=== PATIENT | male | born 1975 | race Caucasian/White ===

== ENCOUNTER 2016-04-06 22:30 | Emergency (ER) | payer OTHER ==
[~2016-04-06 22:30] MED LIST: AMOXICILLIN 50500 MG PO; CLINDAMYCIN HC150 MG PO; DAYPRO600 MG PO; DAZIDOX10 MG PO; DILAUDID 4MG TAB4 MG PO; FLEXERIL 1010 MG/TAB PO; LORTAB 5/500 501 TAB PO; LORTAB 7.5/5001 TAB PO; MS CONTIN30 MG PO; NO HOME MEDICATIONS; NORCO 325 MG-51 TAB PO; NORCO 325 MG-7.1 TAB PO; PERCOCET 325 MG1 TA2 PO; PERCOCET 325 MG1 TAB PO; PERCOCET 5/321 UDTAB PO; PERCOCET 650 MG1 TAB PO; PERCR 7.5 PO; SILVADENE 400G400 GM TP; TUSS PO; ULTRAM 50MG TAB50 MG PO; UNABLE; VENTOLIN0.09 MG IH; XANAX 0.5MG0.5 MG PO; XANAX0.5 MG PO; ZOFRAN ODT8 MG PO; blood pressure med
[2016-04-06 22:40] VITALS: TEMP 98.9
[2016-04-06 23:05] LABS: BASO # 0.1 (0.0-0.2); BASO % 0.6 % (0.0-2.0); EOS # 0.1 (0.0-0.7); GRAN # 4.1 (1.4-6.5); GRAN % 50.7 % (42.2-75.2); HEMATOCRIT 45.4 % (42.0-52.0); HEMOGLOBIN 15.3 g/dl (13.5-18.0); LYMPH # 3.3 (1.2-3.4); LYMPH % 41.3 % (20.0-51.0); MEAN CELL VOLUME 80 fl (80.0-100.0); MEAN CORPUSCULAR HEMOGLOBIN 27 pg (27.0-31.0); MEAN CORPUSCULAR HGB CONC 34 g/dl (33.0-37.0); MEAN PLATELET VOLUME 10.2 fl (7.4-10.4); MONO # 0.5 (0.1-0.6); MONO % 6.2 % (1.7-9.3); PLATELET COUNT 254 K/mm3 (130-400); RED BLOOD COUNT 5.71 M/mm3 (4.20-5.60); REDCELL DISTRIBUTION WIDTH-CV 12.7 % (11.5-14.5)
[2016-04-06 23:11] LABS: PROTHROMBIN TIME 10.8 SECONDS (9.7-12.8)
[2016-04-06 23:14] LABS: PARTIAL THROMBOPLASTIN TIME 31.6 SECONDS (26.0-37.0)
[2016-04-06 23:18] LABS: ADJUSTED CALCIUM 9.4 mg/dL (8.4-10.2); ALANINE AMINOTRANSFERASE 28 U/L (21-72); ALBUMIN 4.6 gm/dL (3.5-5.0); ALKALINE PHOSPHATASE 57 U/L (50-136); ANION GAP 13 mmol/L (7-16); BILIRUBIN,TOTAL 0.7 mg/dL (0.0-1.0); BLOOD UREA NITROGEN 19 mg/dL (9-20); CALCIUM 9.9 mg/dL (8.4-10.2); CARBON DIOXIDE 28 mmol/L (22-30); CHLORIDE 100 mmol/L (98-107); CREATININE, serum 1.07 mg/dL (0.66-1.25); GLUCOSE 87 mg/dL (74-106); POTASSIUM 4.1 mmol/L (3.4-5.0); SODIUM 141 mmol/L (137-145); TOTAL PROTEIN 7.9 gm/dL (6.4-8.2)
[2016-04-06 23:26] LABS: C-REACTIVE PROTEIN < 0.5 mg/dL (0.0-0.9)
[2016-04-06 23:27] LABS: TROPONIN-I < 0.012 ng/mL (0.000-0.034)
[2016-04-07] MEDS ORDERED: NORCO 325 MG-51 TAB PO (00:09)
[2016-04-07 01:18] VITALS: BP 127/84; PULSE 84
== END 2016-04-07 01:20 | disposition home or self-care (01) ==
LOC: COL.ER 22:30
PROVIDERS: Family Medicine
DX: R07.9 Chest pain, unspecified (principal)
CPT/HCPCS: J1170; J1885

== ENCOUNTER 2016-04-14 19:06 | Emergency (ER) | payer OTHER ==
[~2016-04-14] VITALS: Ht 190.5 cm; Wt 97.7 kg
[2016-04-14 19:10] VITALS: TEMP 97.4
[2016-04-14 19:43] LABS: BASO % 0.7 % (0.0-2.0); EOS # 0.1 (0.0-0.7); EOS % 1.6 % (0-4.0); GRAN % 49.4 % (42.2-75.2); HEMATOCRIT 44.1 % (42.0-52.0); HEMOGLOBIN 15.2 g/dl (13.5-18.0); LYMPH # 2.5 (1.2-3.4); LYMPH % 41.5 % (20.0-51.0); MEAN CELL VOLUME 78 fl (80.0-100.0); MEAN CORPUSCULAR HEMOGLOBIN 27 pg (27.0-31.0); MEAN CORPUSCULAR HGB CONC 35 g/dl (33.0-37.0); MEAN PLATELET VOLUME 9.6 fl (7.4-10.4); MONO # 0.4 (0.1-0.6); MONO % 6.6 % (1.7-9.3); PLATELET COUNT 265 K/mm3 (130-400); RED BLOOD COUNT 5.66 M/mm3 (4.20-5.60); REDCELL DISTRIBUTION WIDTH-CV 12.6 % (11.5-14.5); WHITE BLOOD COUNT 6.1 K/mm3 (4.8-10.8)
[2016-04-14 19:58] LABS: ADJUSTED CALCIUM 9.4 mg/dL (8.4-10.2); ALANINE AMINOTRANSFERASE 26 U/L (21-72); ALBUMIN 4.5 gm/dL (3.5-5.0); ALKALINE PHOSPHATASE 63 U/L (50-136); ANION GAP 13 mmol/L (7-16); BILIRUBIN,TOTAL 0.6 mg/dL (0.0-1.0); BLOOD UREA NITROGEN 24 mg/dL (9-20); CALCIUM 9.8 mg/dL (8.4-10.2); CARBON DIOXIDE 25 mmol/L (22-30); CHLORIDE 103 mmol/L (98-107); CREATININE, serum 1.09 mg/dL (0.66-1.25); GLUCOSE 89 mg/dL (74-106); SODIUM 140 mmol/L (137-145); TOTAL PROTEIN 7.7 gm/dL (6.4-8.2)
[2016-04-14 20:10] LABS: TROPONIN-I < 0.012 ng/mL (0.000-0.034)
[2016-04-14 23:25] VITALS: BP 133/72; PULSE 68
== END 2016-04-14 23:27 | disposition home or self-care (01) ==
LOC: COL.ER 19:06
PROVIDERS: Nurse Practitioner
DX: R07.9 Chest pain, unspecified (principal); F17.210 Nicotine dependence, cigarettes, uncomplicated
CPT/HCPCS: J1885

== ENCOUNTER 2016-09-26 02:04 | Emergency (ER) | payer OTHER ==
[~2016-09-26] VITALS: Ht 190.5 cm; Wt 97.7 kg
[2016-09-26 02:10] VITALS: TEMP 98
[2016-09-26] MEDS ORDERED: LODINE400 MG PO (02:14)
[2016-09-26] MEDS ORDERED: ULTRAM 50MG TAB50 MG PO (02:38)
[2016-09-26] MEDS ORDERED: ROXICODONE 55 MG/TAB PO (02:38)
[2016-09-26 03:18] VITALS: BP 131/93; PULSE 91
== END 2016-09-26 03:17 | disposition home or self-care (01) ==
LOC: COL.ER 02:04
DX: M79.671 Pain in right foot (principal); G89.29 Other chronic pain; M79.89 Other specified soft tissue disorders; Z98.890 Other specified postprocedural states

== ENCOUNTER 2016-12-23 10:40 | Emergency (ER) | payer OTHER ==
[~2016-12-23] VITALS: Ht 190.5 cm; Wt 95.5 kg
[~2016-12-23 10:40] MED LIST changes: +LODINE400 MG PO; +ROXICODONE 55 MG/TAB PO
[2016-12-23 10:44] VITALS: BP 136/90; TEMP 97.9
[2016-12-23 11:12] LABS: COLLECTION METHOD CLEAN CATCH
[2016-12-23 11:29] LABS: MUCOUS Present /lpf; PH 6 (5-8); SQUAMOUS EPITHELIAL None Seen /hpf; URINE APPEARANCE Clear; URINE BACTERIA None Seen /hpf; URINE BILIRUBIN Negative (NEGATIVE); URINE BLOOD Negative (NEGATIVE); URINE COLOR Yellow; URINE GLUCOSE Negative (NEGATIVE); URINE KETONE Negative (NEGATIVE); URINE LEUKOCYTE ESTERASE Negative (NEGATIVE); URINE PROTEIN(semi-quant) Negative (NEGATIVE); URINE RBC 0-2 /hpf; URINE WBC 0-2 /hpf
[2016-12-23] MEDS ORDERED: ULTRAM 50MG TAB50 MG PO (11:47)
[2016-12-23 12:05] VITALS: PULSE 88
== END 2016-12-23 12:06 | disposition home or self-care (01) ==
LOC: COL.ER 10:40
PROVIDERS: Physician Assistant
DX: R10.9 Unspecified abdominal pain (principal); F17.210 Nicotine dependence, cigarettes, uncomplicated; Z98.890 Other specified postprocedural states
CPT/HCPCS: J1885; J2360

== ENCOUNTER → 2017-02-09 | Outpatient (CLI) | payer OTHER | LOC: MHCPAIN 14:14 | DX: G89.29 Other chronic pain (principal); M54.16 Radiculopathy, lumbar region; M79.671 Pain in right foot; F17.210 Nicotine dependence, cigarettes, uncomplicated | CPT/HCPCS: G0463 ==

== ENCOUNTER → 2017-03-21 | Outpatient (CLI) | payer OTHER | LOC: MHCPAIN 09:40 | DX: G89.29 Other chronic pain (principal); M79.2 Neuralgia and neuritis, unspecified; M79.1 Myalgia; M79.671 Pain in right foot; F17.210 Nicotine dependence, cigarettes, uncomplicated | CPT/HCPCS: G0463 ==

== ENCOUNTER → 2017-03-22 | Outpatient (CLI) | payer OTHER | LOC: COL.RAD 07:55 | DX: M54.16 Radiculopathy, lumbar region (principal) ==

== ENCOUNTER 2017-04-14 15:06 | Emergency (ER) | payer OTHER ==
[~2017-04-14] VITALS: Ht 188 cm; Wt 95.5 kg
[2017-04-14 15:10] VITALS: BP 134/70; TEMP 97.9
[2017-04-14] MEDS ORDERED: NEURONTIN300 MG/CAP PO (17:18)
[2017-04-14] MEDS ORDERED: NORCO 325 MG-51 TAB PO (17:18)
[2017-04-14] MEDS ORDERED: NAPROXEN 3375 MG/TAB PO (17:19)
[2017-04-14] MEDS ORDERED: ROXICODONE 55 MG/TAB PO (17:25)
[2017-04-14 17:30] VITALS: PULSE 79
== END 2017-04-14 17:30 | disposition home or self-care (01) ==
LOC: COL.ER 15:06
DX: M79.602 Pain in left arm (principal)
CPT/HCPCS: J1170; J1885

== ENCOUNTER → 2017-04-20 | Outpatient (CLI) | payer OTHER ==
[~2017-04-20] MED LIST changes: +NAPROXEN 3375 MG/TAB PO; +NEURONTIN300 MG/CAP PO
== END ==
LOC: MHCPAIN 11:55
DX: G89.29 Other chronic pain (principal); M79.2 Neuralgia and neuritis, unspecified; M79.1 Myalgia; M79.605 Pain in left leg; M79.604 Pain in right leg
CPT/HCPCS: G0463

== ENCOUNTER 2017-05-10 13:11 | Emergency (ER) | payer OTHER ==
[~2017-05-10] VITALS: Ht 188 cm; Wt 93.2 kg
[2017-05-10 13:13] VITALS: TEMP 98.7
[2017-05-10] MEDS ORDERED: ROXICODONE 55 MG/TAB PO (13:14)
[2017-05-10 14:28] LABS: COLLECTION METHOD CLEAN CATCH
[2017-05-10 14:43] LABS: PH 9 (5-8); SQUAMOUS EPITHELIAL None Seen /hpf; URINE APPEARANCE Clear; URINE BACTERIA None Seen /hpf; URINE BILIRUBIN Negative (NEGATIVE); URINE BLOOD Negative (NEGATIVE); URINE COLOR Colorless; URINE GLUCOSE Negative (NEGATIVE); URINE KETONE Negative (NEGATIVE); URINE LEUKOCYTE ESTERASE Negative (NEGATIVE); URINE NITRATE Negative (NEGATIVE); URINE PROTEIN(semi-quant) Negative (NEGATIVE); URINE RBC None Seen /hpf; URINE UROBILINOGEN Negative (NEGATIVE)
[2017-05-10 15:40] VITALS: BP 124/88; PULSE 80
== END 2017-05-10 15:42 | disposition home or self-care (01) ==
LOC: COL.ER 13:11
PROVIDERS: Physician Assistant
DX: R36.1 Hematospermia (principal); F17.210 Nicotine dependence, cigarettes, uncomplicated; Z87.442 Personal history of urinary calculi

== ENCOUNTER 2017-05-24 17:31 | Emergency (ER) | payer OTHER ==
[~2017-05-24] VITALS: Ht 188 cm; Wt 88.6 kg
[2017-05-24 17:50] VITALS: TEMP 97.5
[2017-05-24 18:11] LABS: BASO % 0.7 % (0.0-2.0); EOS % 0.9 % (0-4.0); GRAN # 2.2 (1.4-6.5); GRAN % 48.9 % (42.2-75.2); HEMATOCRIT 37.7 % (42.0-52.0); HEMOGLOBIN 13.1 g/dl (13.5-18.0); LYMPH # 1.9 (1.2-3.4); LYMPH % 42.1 % (20.0-51.0); MEAN CELL VOLUME 76 fl (80.0-100.0); MEAN CORPUSCULAR HEMOGLOBIN 26 pg (27.0-31.0); MEAN CORPUSCULAR HGB CONC 35 g/dl (33.0-37.0); MONO # 0.3 (0.1-0.6); MONO % 7.2 % (1.7-9.3); PLATELET COUNT 340 K/mm3 (130-400); RED BLOOD COUNT 4.99 M/mm3 (4.20-5.60)
[2017-05-24 18:17] LABS: BILIRUBIN,TOTAL 0.6 mg/dL (0.0-1.0); CALCIUM 8.8 mg/dL (8.4-10.2); CREATININE, serum 0.88 mg/dL (0.66-1.25); POTASSIUM 3.3 mmol/L (3.4-5.0); TOTAL PROTEIN 7.3 gm/dL (6.4-8.2)
[2017-05-24 18:19] LABS: COLLECTION METHOD CLEAN CATCH
[2017-05-24] MEDS ORDERED: LODINE200 MG PO (18:21)
[2017-05-24 18:25] LABS: PH 9 (5-8); SQUAMOUS EPITHELIAL None Seen /hpf; URINE APPEARANCE Clear; URINE BACTERIA None Seen /hpf; URINE BILIRUBIN Negative (NEGATIVE); URINE BLOOD Negative (NEGATIVE); URINE COLOR Straw; URINE GLUCOSE Negative (NEGATIVE); URINE KETONE Trace (NEGATIVE); URINE LEUKOCYTE ESTERASE Negative (NEGATIVE); URINE NITRATE Negative (NEGATIVE); URINE PROTEIN(semi-quant) Negative (NEGATIVE); URINE RBC 0-2 /hpf; URINE UROBILINOGEN Negative (NEGATIVE)
[2017-05-24] MEDS ORDERED: VOLTAREN 75 DR75 MG PO (18:30)
[2017-05-24] MEDS ORDERED: FLEXERIL 1010 MG/TAB PO (18:30)
[2017-05-24 18:48] VITALS: BP 133/82; PULSE 72
== END 2017-05-24 18:50 | disposition home or self-care (01) ==
LOC: COL.ER 17:31
PROVIDERS: Emergency Medicine
DX: S39.012A Strain of muscle, fascia and tendon of lower back, initial encounter (principal); Z87.442 Personal history of urinary calculi; X58.XXXA Exposure to other specified factors, initial encounter
CPT/HCPCS: J1885; J2765; J3010; J7030

== ENCOUNTER 2017-10-24 15:59 | Emergency (ER) | payer OTHER ==
[~2017-10-24] VITALS: Ht 188 cm; Wt 91.8 kg
[~2017-10-24 15:59] MED LIST changes: +LODINE200 MG PO; +VOLTAREN 75 DR75 MG PO
[2017-10-24 16:02] VITALS: TEMP 98.5
[2017-10-24] MEDS ORDERED: NEURONTIN300 MG/CAP PO (16:15)
[2017-10-24 18:10] VITALS: BP 134/92; PULSE 65
== END 2017-10-24 18:23 | disposition home or self-care (01) ==
LOC: COL.ER 15:59
DX: T26.42XA Burn of left eye and adnexa, part unspecified, initial encounter (principal); T26.41XA Burn of right eye and adnexa, part unspecified, initial encounter; T54.3X1A Toxic effect of corrosive alkalis and alkali-like substances, accidental (unintentional), initial encounter

== ENCOUNTER 2018-08-16 10:10 | Emergency (ER) | payer OTHER ==
[~2018-08-16] VITALS: Ht 190.5 cm; Wt 95.5 kg
[2018-08-16 10:30] LABS: COLLECTION METHOD CLEAN CATCH
[2018-08-16 10:38] LABS: PH 9 (5-8); SQUAMOUS EPITHELIAL None Seen /hpf; URINE APPEARANCE Clear; URINE BACTERIA None Seen /hpf; URINE BILIRUBIN Negative (NEGATIVE); URINE BLOOD Negative (NEGATIVE); URINE COLOR Yellow; URINE GLUCOSE Negative (NEGATIVE); URINE KETONE Negative (NEGATIVE); URINE LEUKOCYTE ESTERASE Negative (NEGATIVE); URINE NITRATE Negative (NEGATIVE); URINE PROTEIN(semi-quant) Negative (NEGATIVE); URINE RBC 0-2 /hpf; URINE UROBILINOGEN Negative (NEGATIVE)
[2018-08-16 11:14] LABS: ALANINE AMINOTRANSFERASE 17 U/L (21-72); ALKALINE PHOSPHATASE 54 U/L (50-136); ANION GAP 10 mmol/L (7-16); AST,SGOT 24 U/L (15-37); BILIRUBIN,TOTAL 0.5 mg/dL (0.0-1.0); BLOOD UREA NITROGEN 11 mg/dL (9-20); CALCIUM 9.2 mg/dL (8.4-10.2); CARBON DIOXIDE 26 mmol/L (22-30); CHLORIDE 103 mmol/L (98-107); CREATININE, serum 0.79 (0.66-1.25); GLUCOSE 98 mg/dL (74-106); LIPASE 66 U/L (23-300); POTASSIUM 3.9 mmol/L (3.4-5.0); SODIUM 139 mmol/L (137-145); TOTAL PROTEIN 6.9 gm/dL (6.4-8.2)
[2018-08-16 11:15] LABS: C-REACTIVE PROTEIN < 0.5 mg/dL (0.0-0.9)
[2018-08-16] MEDS ORDERED: FLEXERIL 1010 MG/TAB PO (12:28)
[2018-08-16 12:38] VITALS: BP 128/95; PULSE 67; TEMP 98.1
[2018-08-16 12:39] LABS: BASO % 0.6 % (0.0-2.0); EOS % 0.4 % (0-4.0); GRAN # 2.6 (1.4-6.5); GRAN % 56.4 % (42.2-75.2); HEMATOCRIT 41.5 % (42.0-52.0); HEMOGLOBIN 13.7 g/dl (13.5-18.0); LYMPH # 1.7 (1.2-3.4); LYMPH % 35.7 % (20.0-51.0); MEAN CELL VOLUME 81 fl (80.0-100.0); MEAN CORPUSCULAR HEMOGLOBIN 27 pg (27.0-31.0); MEAN CORPUSCULAR HGB CONC 33 g/dl (33.0-37.0); MEAN PLATELET VOLUME 9.1 fl (7.4-10.4); MONO # 0.3 (0.1-0.6); MONO % 6.7 % (1.7-9.3); PLATELET COUNT 248 K/mm3 (130-400); RED BLOOD COUNT 5.13 M/mm3 (4.20-5.60); REDCELL DISTRIBUTION WIDTH-CV 12.5 % (11.5-14.5)
== END 2018-08-16 12:44 | disposition home or self-care (01) ==
LOC: COL.ER 10:10
PROVIDERS: Family Medicine
DX: G89.29 Other chronic pain (principal); R10.9 Unspecified abdominal pain; Z87.442 Personal history of urinary calculi
CPT/HCPCS: J1170; J1885; J7030; Q9967

== ENCOUNTER 2019-05-02 12:14 | Emergency (ER) | payer OTHER ==
[~2019-05-02] VITALS: Ht 190.5 cm; Wt 104.5 kg
[2019-05-02 13:54] VITALS: BP 145/79; TEMP 98
[2019-05-02] MEDS ORDERED: CYMBALTA 60MG60 MG PO (13:58)
[2019-05-02] MEDS ORDERED: VISTARIL 2525 MG/CAP PO (13:59)
[2019-05-02] MEDS ORDERED: NYSTATIN OR100 MU/ML PO (14:07)
[2019-05-02 14:29] VITALS: PULSE 75
== END 2019-05-02 14:30 | disposition home or self-care (01) ==
LOC: COL.ER 12:14
DX: B37.9 Candidiasis, unspecified (principal); F31.9 Bipolar disorder, unspecified; F17.210 Nicotine dependence, cigarettes, uncomplicated

== ENCOUNTER 2019-09-09 15:19 | Emergency (ER) | payer OTHER ==
[~2019-09-09] VITALS: Ht 190.5 cm; Wt 85.5 kg
[~2019-09-09 15:19] MED LIST changes: +CYMBALTA 60MG60 MG PO; +DOXYCYCLINE 10100 MG PO; +NYSTATIN OR100 MU/ML PO; +VISTARIL 2525 MG/CAP PO
[2019-09-09 15:24] VITALS: TEMP 97.1
[2019-09-09 15:53] LABS: BASO # 0.1 (0.0-0.2); BASO % 0.8 % (0.0-2.0); EOS # 0.1 (0.0-0.7); EOS % 1.1 % (0-4.0); GRAN # 5.4 (1.4-6.5); GRAN % 65.7 % (42.2-75.2); HEMATOCRIT 41.1 % (42.0-52.0); LYMPH # 1.9 (1.2-3.4); LYMPH % 22.3 % (20.0-51.0); MEAN CELL VOLUME 79 fl (80.0-100.0); MEAN CORPUSCULAR HEMOGLOBIN 27 pg (27.0-31.0); MEAN CORPUSCULAR HGB CONC 34 g/dl (33.0-37.0); MEAN PLATELET VOLUME 9.2 fl (7.4-10.4); MONO # 0.8 (0.1-0.6); MONO % 9.9 % (1.7-9.3); PLATELET COUNT 262 K/mm3 (130-400); RED BLOOD COUNT 5.23 M/mm3 (4.20-5.60); REDCELL DISTRIBUTION WIDTH-CV 13.3 % (11.5-14.5)
[2019-09-09 16:10] LABS: ALBUMIN 4.4 gm/dL (3.5-5.0); BILIRUBIN,TOTAL 1.5 mg/dL (0.0-1.0); C-REACTIVE PROTEIN 0.6 mg/dL (0.0-0.9); CALCIUM 9.2 mg/dL (8.4-10.2); CREATININE, serum 1.01 (0.66-1.25); POTASSIUM 3.8 mmol/L (3.4-5.0); TOTAL PROTEIN 7.4 gm/dL (6.4-8.2)
[2019-09-09] MEDS ORDERED: ZITHROMAX Z PA250 MG PO (17:06)
[2019-09-09] MEDS ORDERED: VOLTAREN 75 DR75 MG PO (17:06)
[2019-09-09 17:27] VITALS: BP 108/91; PULSE 96
[2019-09-09 17:29] LABS: COLLECTION METHOD CLEAN CATCH
[2019-09-09 17:38] LABS: MUCOUS Present /lpf; PH 5 (5-8); SQUAMOUS EPITHELIAL 0-2 /hpf; URINE APPEARANCE Hazy; URINE BACTERIA Rare /hpf; URINE BILIRUBIN Negative (NEGATIVE); URINE BLOOD Negative (NEGATIVE); URINE COLOR Amber; URINE GLUCOSE Negative (NEGATIVE); URINE KETONE 1+ (NEGATIVE); URINE LEUKOCYTE ESTERASE Negative (NEGATIVE); URINE NITRATE Negative (NEGATIVE); URINE PROTEIN(semi-quant) 2+ (NEGATIVE); URINE UROBILINOGEN >=4.0 mg/dL (NEGATIVE)
[2019-09-09 17:58] LABS: TRICYCLIC ANTIDEPRESS URINE NEGATIVE
== END 2019-09-09 17:46 | disposition home or self-care (01) ==
LOC: COL.ER 15:19
PROVIDERS: Family Medicine
DX: T43.625A Adverse effect of amphetamines, initial encounter (principal); R07.89 Other chest pain; M79.602 Pain in left arm; F17.210 Nicotine dependence, cigarettes, uncomplicated
CPT/HCPCS: J1885; J7030

== ENCOUNTER 2019-09-10 06:54 | Emergency (ER) | payer OTHER ==
[~2019-09-10] VITALS: Ht 190.5 cm; Wt 83.6 kg
[~2019-09-10 06:54] MED LIST changes: +ZITHROMAX Z PA250 MG PO
[2019-09-10 06:55] VITALS: BP 130/81; TEMP 97.9
[2019-09-10 07:57] LABS: BASO % 0.8 % (0.0-2.0); EOS # 0.2 (0.0-0.7); EOS % 3.1 % (0-4.0); HEMATOCRIT 37.7 % (42.0-52.0); HEMOGLOBIN 12.6 g/dl (13.5-18.0); LYMPH # 1.5 (1.2-3.4); LYMPH % 29.4 % (20.0-51.0); MEAN CELL VOLUME 80 fl (80.0-100.0); MEAN CORPUSCULAR HEMOGLOBIN 27 pg (27.0-31.0); MEAN CORPUSCULAR HGB CONC 33 g/dl (33.0-37.0); MEAN PLATELET VOLUME 9.6 fl (7.4-10.4); MONO # 0.5 (0.1-0.6); MONO % 9.5 % (1.7-9.3); PLATELET COUNT 229 K/mm3 (130-400); RED BLOOD COUNT 4.71 M/mm3 (4.20-5.60); REDCELL DISTRIBUTION WIDTH-CV 13.6 % (11.5-14.5)
[2019-09-10 10:17] LABS: ALBUMIN 3.6 gm/dL (3.5-5.0); BILIRUBIN,TOTAL 0.7 mg/dL (0.0-1.0); CALCIUM 8.4 mg/dL (8.4-10.2); CREATININE, serum 0.9 (0.66-1.25); POTASSIUM 3.7 mmol/L (3.4-5.0); TOTAL PROTEIN 6.4 gm/dL (6.4-8.2)
[2019-09-10 10:25] VITALS: PULSE 80
--- NOTE | 2019-09-10 15:25 | NUR ---
Rug Dyer was consulted for patient who reports he is homeless. SW met with patient and asked where he stayed last night. Patient states he just walked around outside all night. Before this, patient stayed with his daughter, Mando (ph#[phone]). Patient reports his daughter is in public housing and cannot have him staying with her longterm. Patient reports before this, he was staying with his son's grandma, Sera in [place]. Patient states they "got into it" and he can no longer stay there. Patient is interested in [facility]. SW spoke with patient about signing up for the Community Care Team. SW provided brochure and spoke with patient about signing a Release of Information so [facility] can review his situation and provide assistance if able. Patient is agreeable and signed release. Patient states he lost his phone and wallet last night because he's been "losing time". SW circled the phone number on the CCT brochure and advised patient to call that number on Tuesday as that is when CCT meets. Patient verbalized understanding. Patient has [facility] [employer] [facility]. Patient states he used to go to the [facility] but has not been there in a couple years. SW contacted [facility] and was advised by Saadia, Director that patient is on the No Return List for having weapons and medications in his room. SW contacted the [facility] and they are not taking people in at this time. KATIA met with patient to provide this update. Patient denies having weapons last time he was at the long-term. Patient is unsure where he will stay tonight but requested a shirt. KATIA provided then collaborated the above information to RN.
== END 2019-09-10 10:25 | disposition home or self-care (01) ==
LOC: COL.ER 06:54
PROVIDERS: Emergency Medicine
DX: F15.10 Other stimulant abuse, uncomplicated (principal); R41.3 Other amnesia; F17.210 Nicotine dependence, cigarettes, uncomplicated; Z88.6 Allergy status to analgesic agent

== ENCOUNTER 2020-03-06 05:14 | Emergency (ER) | payer OTHER ==
[~2020-03-06] VITALS: Ht 190.5 cm; Wt 90.9 kg
[2020-03-06 05:25] VITALS: BP 140/78; PULSE 115; TEMP 98.7
== END 2020-03-06 06:02 | disposition home or self-care (01) ==
LOC: COL.ER 05:14
DX: M79.671 Pain in right foot (principal); F17.210 Nicotine dependence, cigarettes, uncomplicated; Z88.6 Allergy status to analgesic agent
CPT/HCPCS: J1885